=== PATIENT | male | born 1955 | race Caucasian/White ===

== ENCOUNTER → 2023-03-11 14:52 | Outpatient (CLI) | payer OTHER, SELFPAY ==
--- NOTE | ~2023-03-11 | MR_ITS ---
EXAMINATION: MR knee LT wo con DATE: 03/11/2023 15:31 INDICATION: Chronic pain L knee TECHNIQUE: Magnetic resonance imaging (MRI) of the left knee was performed without intravenous contra st. Sequences included axial PD-weighted FS FSE, coronal PD-weighted FSE and PD-weighted FS FSE, sagi ttal PD-weighted FSE, and sagittal T2-weighted FS FSE. COMPARISON: None. FINDINGS: Medial compartment: Notch-like defect in the apex/superior surface of the posterior horn. Intermediate signal intensity i n the apex of the meniscal body and linear intermediate signal in the posterior horn extending to the the meniscal undersurface. Partial-thickness cartilage loss over the meniscal defect. Mild diffuse c artilage thinning. Mild osteophytosis. Lateral compartment: Intact meniscus. Mild osteophytosis. Patellofemoral compartment: Focal signal abnormality with a full-thickness fissure over the median ridge with large subjacent sub chondral cyst formation. Ligaments and tendons: Normal-appearing quadriceps tendon. Focal high signal within the proximal patellar tendon near its or igin. The ACL, PCL, MCL, and LCL are intact. Remaining flexor and extensor tendons are intact. Fluid: Small volume joint fluid. Osseous/other: Mild diffuse T2 hyperintensity within the patella. IMPRESSION: Apical tear of the posterior horn, medial meniscus, with fraying of the apex of the posterior horn an d body and a possible healed oblique undersurface tear at the junction of the posterior horn and body . Moderate chondromalacia patella. Mild marrow edema within the patella may be reactive, contusion woul d appear similar. Small focal patellar tendon tear at its origin. Reviewed, dictated and finalized at location [facility] [employer] IMPRESSION: Apical tear of the posterior horn, medial meniscus, with fraying of the apex of the posterior horn and body and a possible healed oblique undersurface tear at the junction of the posterior horn and body. Moderate chondromalacia patella. Mild marrow edema within the patella may be re active, contusion would appear similar. Small focal patellar tendon tear at its origin.
== END ==
PROVIDERS: Visit Provider Orthopaedic Surgery
DX: S83.242A Other tear of medial meniscus, current injury, left knee, initial encounter (principal); X58.XXXA Exposure to other specified factors, initial encounter
CPT/HCPCS: 73721